=== PATIENT | female | born 1955 | race Caucasian/White ===

== ENCOUNTER → 2017-12-06 | Outpatient (CLI) | payer BC ==
--- NOTE | 2017-12-06 10:20 | CTL ---
EXAMINATION TYPE: CT Low Dose Lung DATE OF EXAM ORDERED: 12/06/2017 HISTORY: . Lung cancer screening CT DLP: 103.[address] CTDI: 3.1 mGy Automated exposure control for dose reduction was used. SCREENING VISIT: Initial COMPARISON: None TECHNIQUE: Low dose computed tomography scan was performed through the chest at 1 mm thick sections a nd reconstructed images in the coronal plane at [address] DIAGNOSTIC QUALITY: Satisfactory FINDINGS: LUNG NODULES: None. There is a 0.6 cm nodule within the periphery of the right posterior lateral lung base. Series 4 imag e 219. There is a 0.3 cm nodule within the periphery of the posterior lateral right lung base. Series 4 imag e 195. There is a 0.4 cm peripheral nodule posterior lateral left lung base. Series 4 image 189. There is a 0.5 cm peripheral nodule posterior right lower lung field. Series 4 image 188. LUNGS: COPD: Severity: None Fibrosis: Severity: None Lymph nodes: None Other findings: Ascending thoracic aorta measures 3.0 cm the main pulmonary artery. Main pulmonary ar lex measures 2.2 cm at the bifurcation. RIGHT PLEURAL SPACE: Effusion: None Calcification: None Thickening: None Pneumothorax: None LEFT PLEURAL SPACE: Effusion: None Calcification: None Thickening: None Pneumothorax: None HEART: Heart Size: Normal Coronary calcification: Minimal Pericardial effusion: None OTHER FINDINGS: Upper abdomen: Normal Bony thorax: Mild scoliosis. Supraclavicular region: Normal Other: None IMPRESSION: 1. Scattered small peripheral nodules FOLLOW UP CT CHEST RECOMMENDATION: Yes, follow-up low-dose CT chest [address] LUNG RAD: Lung rad 3
== END | disposition home or self-care (01) ==
LOC: RADCTMAIN 07:08
PROVIDERS: ATTEND Family Medicine
DX: Z12.2 Encounter for screening for malignant neoplasm of respiratory organs (principal); R91.8 Other nonspecific abnormal finding of lung field; Z87.891 Personal history of nicotine dependence

== ENCOUNTER → 2018-06-18 | Outpatient (CLI) | payer BC ==
--- NOTE | 2018-06-18 21:32 | CTL ---
EXAMINATION TYPE: CT Low Dose Lung DATE OF EXAM ORDERED: 06/18/2018 HISTORY: Long-term tobacco use. Lung cancer screening CT DLP: [address] CTDI: 2.14 mGy Automated exposure control for dose reduction was used. SCREENING VISIT: Second study COMPARISON: Prior CT Low Dose Lung screening December 06, 2017 TECHNIQUE: Low dose computed tomography scan was performed through the chest at 1 mm thick sections a nd reconstructed images in the coronal plane at [address] DIAGNOSTIC QUALITY: Satisfactory FINDINGS: LUNG NODULES: Present, detailed below: A 4 mm nodule anterior right lower lobe axial image 195 stable in retrospect. A 5 mm nodule anterior right lower lobe axial image 196 stable. A 3 mm nodule lateral right lower lobe axial image 203 stable. A 4 to 5 mm subpleural nodule right lower lobe axial image 227 stable or slightly less prominent. A 3 to 4 mm subpleural nodule left lower lobe axial image 204 stable. LUNGS: COPD: Severity: None Fibrosis: Severity: None Lymph nodes: None Other findings: None BILATERAL PLEURAL SPACE: Effusion: None Calcification: None Thickening: None Pneumothorax: None HEART: Heart Size: Normal Coronary calcification: None Pericardial effusion: None OTHER FINDINGS: Upper abdomen: None Bony thorax: None Supraclavicular region: None Other: None IMPRESSION: Stable scattered small nodules measuring up to 5 mm in size. No new greater than 4 mm nod ules evident. FOLLOW UP CT CHEST RECOMMENDATION: Annual low-dose lung screening CT CT LUNG RAD: Lung-Rad 2 Benign Appearance or Behavior
== END | disposition home or self-care (01) ==
LOC: RADCTMAIN 17:20
PROVIDERS: ATTEND Family Medicine
DX: Z12.2 Encounter for screening for malignant neoplasm of respiratory organs (principal); R91.8 Other nonspecific abnormal finding of lung field; Z87.891 Personal history of nicotine dependence

== ENCOUNTER → 2018-09-09 | Outpatient (CLI) | payer BC ==
--- NOTE | 2018-09-09 08:52 | BD ---
EXAMINATION TYPE: Axial Bone Density DATE OF EXAM: 09/09/2018 COMPARISON: NONE CLINICAL HISTORY: N 95.1 Height: 66.25 inches Weight: 185 FRAX RISK QUESTIONS: Alcohol (3 or more units per day): no Family History (Parent hip fracture): yes Glucocorticoids (More than 3mos): no (Ex: prednisone, prednisolone, methylprednisolone, dexamethasone, and hydrocortisone). History of Fracture in Adulthood: no Secondary Osteoporosis: 1. Type 1 Diabetes: no 2. Hyperthyroidism: no 3. Menopause before 45: no 4. Malnutrition: no 5. Chronic liver disease: no Rheumatoid Arthritis: no Current Tobacco Use: no RISK FACTORS HISTORY OF: Family History of Osteoporosis: not to patient's knowledge Active: yes Diet low in dairy products/other sources of calcium: no Postmenopausal woman: yes Take estrogen and/or progesterone medications: no Lost more than 2 inches in height since high school: no Frequent falls: no Poor Health: no Hyperparathyroidism: no Adrenal Insufficiency: no MEDICATIONS: Prednisone or other steroids: no Thyroid Medications: no Osteoporosis Medications: no Additional Medications: calcium Vitamin D Additional History: EXAM MEASUREMENTS: Bone mineral densitometry was performed using the [id number] System. Bone mineral density as measured about the Lumbar spine is: ----- L1-L4(G/cm2): 1.150 T Score Values are as follows: ----- L2: -0.3 ----- L3: 0.3 ----- L4: -0.6 ----- L1-L4: -0.2 Bone mineral density BASELINE Bone mineral density about the R hip (g/cm2): 0.945 Bone mineral density about the L hip (g/cm2): 0.950 T Score values are as follows: -----R Neck: -0.7 -----L Neck: -0.6 -----R Total: -0.3 -----L Total: 0.3 Bone mineral density BASELINE IMPRESSION: Normal (Values between +1 and -1 indicate normal bone mass). Consider repeating this study in 5 year s or sooner if there is some new clinical indication. NOTE: T-SCORE=SD OF THE YOUNG ADULT MEAN.
--- NOTE | 2018-09-10 13:40 | MM ---
Reason for exam: screening (asymptomatic). Last mammogram was performed 1 year and 9 months ago. History: Patient is postmenopausal and had first child at age 32. Physical Findings: A clinical breast exam by your physician is recommended on an annual basis and results should be correlated with mammographic findings. MG 3D Screening Mammo W/Cad Bilateral CC and MLO view(s) were taken. Prior study comparison: December 19, 2016, mammogram, performed at [facility]. April 01, 2015, mammogram, performed at [facility]. February 26, 2013, mammogram, performed at [facility]. July 01, 2010, mammogram, performed at [facility]. January 08, 2009, mammogram, performed at [facility]. January 07, 2009, mammogram, performed at [facility]. There are scattered fibroglandular densities. No significant changes when compared with prior studies. ASSESSMENT: Benign, BI-RAD 2 RECOMMENDATION: Routine screening mammogram of both breasts in 1 year.
== END | disposition home or self-care (01) ==
LOC: RADMAMWWP 06:58
PROVIDERS: ATTEND Obstetrics & Gynecology
DX: Z12.31 Encounter for screening mammogram for malignant neoplasm of breast (principal); N95.1 Menopausal and female climacteric states
CPT/HCPCS: 77063; 77067; 77080

== ENCOUNTER → 2019-08-28 | Outpatient (CLI) | payer BC | END | disposition home or self-care (01) | LOC: LABWHC1 09:21 | PROVIDERS: ATTEND Family Medicine | DX: Z03.818 Encounter for observation for suspected exposure to other biological agents ruled out (principal); R52 Pain, unspecified; J02.9 Acute pharyngitis, unspecified | CPT/HCPCS: U0003; C9803 ==

== ENCOUNTER → 2021-04-20 | Outpatient (CLI) | payer BC ==
--- NOTE | 2021-04-21 11:19 | MM ---
Reason for exam: screening (asymptomatic). Last mammogram was performed 2 years and 7 months ago. History: Patient is postmenopausal and had first child at age 32. Physical Findings: A clinical breast exam by your physician is recommended on an annual basis and results should be correlated with mammographic findings. MG 3D Screening Mammo W/Cad Bilateral CC and MLO view(s) were taken. Prior study comparison: September 09, 2018, bilateral MG 3d screening mammo w/cad. December 19, 2016, mammogram, performed at [facility]. The breast tissue is heterogeneously dense. This may lower the sensitivity of mammography. There is no discrete abnormality. No significant changes when compared with prior studies. ASSESSMENT: Negative, BI-RAD 1 RECOMMENDATION: Routine screening mammogram of both breasts in 1 year.
== END | disposition home or self-care (01) ==
LOC: RADMAMWWP 07:14
PROVIDERS: ATTEND Obstetrics & Gynecology
DX: Z12.31 Encounter for screening mammogram for malignant neoplasm of breast (principal); Z80.3 Family history of malignant neoplasm of breast
CPT/HCPCS: 77063; 77067

== ENCOUNTER 2022-05-01 07:30 | Emergency (ER) | payer MEDICARE, BC ==
[2022-05-01 07:34] VITALS: BP 138/65; PULSE 85; RESP 18; TEMP 98.1
[2022-05-01] MEDS ORDERED: IBUPROFEN 600 MG TAB PO STA (07:48)
--- NOTE | 2022-05-01 07:52 | ED ---
URI HPI - General Chief Complaint: Upper Respiratory Infection Stated Complaint: throat pain, body aches Time Seen by Provider: 05/01/22 07:35 Source: patient, RN notes reviewed, old records reviewed Mode of arrival: ambulatory Limitations: no limitations - History of Present Illness Initial Comments: This is a nontoxic-appearing 66-year-old female presents to the emergency room ambulatory with complaints of 4 days of sore throat and body aches. States it feels like she has the flu. Denies any fevers. No nausea vomiting or diarrhea. No chest pain. She does have an occasional cough. Symptoms improve with ibuprofen. Was a daily smoker but states stopped a couple days ago. Denies any other medical history. No medications on a daily basis. MD Complaint: sore throat, other (body aches) -: days(s) (4) Severity scale (1-10): 8 Quality: aching Consistency: constant Improves With: NSAID - Related Data Home Medications Medication Instructions Recorded Confirmed No Known Home Medications 05/01/22 05/01/22 Allergies Allergy/AdvReac Type Severity Reaction Status Date / Time No Known Allergies Allergy Verified 05/01/22 07:43 Review of Systems ROS Statement: Those systems with pertinent positive or pertinent negative responses have been documented in the HPI. ROS Other: All systems not noted in ROS Statement are negative. Past Medical History Past Medical History: No Reported History History of Any Multi-Drug Resistant Organisms: None Reported Past Surgical History: Section Past Psychological History: No Psychological Hx Reported Smoking Status: Former smoker Past Alcohol Use History: Occasional Past Drug Use History: None Reported General Exam Limitations: no limitations General appearance: alert, in no apparent distress Head exam: Present: atraumatic Eye exam: Present: normal appearance. Absent: scleral icterus, conjunctival injection, periorbital swelling, periorbital tenderness ENT exam: Present: mucous membranes moist Expanded Mouth exam: Present: tongue normal, tongue elevation. Absent: drooling, trismus, muffled voice Throat exam: normal inspection. negative: tonsillar erythema, tonsillomegaly, tonsillar exudate, R peritonsillar mass, L peritonsillar mass Neck exam: Present: full ROM. Absent: tenderness, meningismus, lymphadenopathy, thyromegaly Respiratory exam: Present: normal lung sounds bilaterally. Absent: respiratory distress, accessory muscle use Cardiovascular Exam: Present: regular rate Extremities exam: Present: full ROM, normal capillary refill Neurological exam: Present: alert, oriented X3, CN II-XII intact Psychiatric exam: Present: normal affect, normal mood Skin exam: Present: warm, dry, normal color. Absent: cyanosis, diaphoretic, petechiae, pallor Course Vital Signs 05/01/22 05/01/22 07:32 08:02 Temperature 98.1 F Pulse Rate 85 Respiratory 18 18 Rate Blood Pressure 138/65 O2 Sat by Pulse 96 Oximetry Medical Decision Making - Medical Decision Making Chest x-ray interpreted by me shows no evidence of focal consolidation. Cardiac silhouette within normal size. Trachea is midline. Radiologist interpretation no evidence of acute pulmonary disease. Oxygen saturation is 96% on room air, lungs sounds are clear to auscultation. Patient is afebrile. She denies any chest pain or difficulty breathing. Strep test performed due to patient's complaints of sore throat and negative. Influenza, coronavirus (swab negative. Patient states she continues to have a sore throat for she was given a shot of Decadron. She is instructed take Tylenol Motrin as needed follow-up with her primary care doctor. Increase her fluid intake. She is agreeable to this plan of care. Case discussed with Dr. Sam. Was pt. sent in by a medical professional or institution ([facility] Mcintyre, [employer], urgent care, hospital, or penitentiary...) When possible be specific @ -No Did you speak to anyone other than the patient for history (EMS, parent, family, police, friend...)? What history was obtained from this source @ -No Did you review nursing and triage notes (agree or disagree)? Why? @ -I reviewed and agree with nursing and triage notes Were old charts reviewed (outside hosp., previous admission, EMS record, old EKG, old radiological studies, urgent care reports/EKG's, penitentiary records)? Report findings @ -No old charts were reviewed Differential Diagnosis (chest pain, altered mental status, abdominal pain women, abdominal pain men, vaginal bleeding, weakness, fever, dyspnea, syncope, headache, dizziness, GI bleed, back pain, seizure, CVA, palpatations, mental health, musculoskeletal)? @ -Viral URI, strep pharyngitis, coronavirus, retropharyngeal abscess, epiglottitis, pneumonia . This is not an all inclusive list EKG interpreted by me (3pts min.). @ -n/a X-rays interpreted by me (1pt min.). @ -yES as above CT interpreted by me (1pt min.). @ -None done U/S interpreted by me (1pt. min.). @ -None done What testing was considered but not performed or refused? (CT, X-rays, U/S, labs)? Why? @ -None What meds were considered but not given or refused? Why? @ -None Did you discuss the management of the patient with other professionals (professionals i.e. Dr., PA, [employer], lab, RT, psych nurse, social economist, preschool teacher assistant, teacher, chief informatics officer, heel caser)? Give summary @ -No Was smoking cessation discussed for >3mins.? @ -Yes Was critical care preformed (if so, how long)? @ -No Were there social determinants of health that impacted care today? How? (Homelessness, low income, unemployed, alcoholism, drug addiction, transportation, low edu. Level, literacy, decrease access to med. care, long term, rehab)? @ -No Was there de-escalation of care discussed even if they declined (Discuss DNR or withdrawal of care, Hospice)? DNR status @ -No What co-morbidities impacted this encounter? (DM, HTN, Smoking, COPD, CAD, Cancer, CVA, ARF, Chemo, Hep., AIDS, mental health diagnosis, sleep apnea, morbid obesity)? @ -None Was patient admitted / discharged? Hospital course, mention meds given and route, prescriptions, significant lab abnormalities, going to OR and other pertinent info. @ -Discharged Undiagnosed new problem with uncertain prognosis? @ -No Drug Therapy requiring intensive monitoring for toxicity (Heparin, Nitro, Insulin, Cardizem)? @ -No Were any procedures done? @ -No Diagnosis/symptom? @ -URI, pharyngitis Acute, or Chronic, or Acute on Chronic? @ -Acute Uncomplicated (without systemic symptoms) or Complicated (systemic symptoms)? @ -Uncomplicated Side effects of treatment? @ -No Exacerbation, Progression, or Severe Exacerbation? @ -No Poses a threat to life or bodily function? How? (Chest pain, [place], [place], pneumonia, PE, COPD, DKA, ARF, appy, cholecystitis, CVA, Diverticulitis, Homicidal, Suicidal, threat to staff... and all critical care pts) @ -No - Lab Data Lab Results 05/01/22 05/01/22 Range/Units 07:59 07:59 Influenza Type A (PCR) Not Detected (Not Detectd) Influenza Type B (PCR) Not Detected (Not Detectd) RSV (PCR) Not Detected (Not Detectd) SARS-CoV-2 (PCR) Not Detected (Not Detectd) Group A Strep (PCR) NOT DETECTED (Not Detectd) Disposition Clinical Impression: URI (upper respiratory infection), Pharyngitis Disposition: HOME SELF-CARE Condition: Good Instructions (If sedation given, give patient instructions): Upper Respiratory Infection (ED) Additional Instructions: Increase your fluid intake. Tylenol and or Motrin as needed for pain or discomfort. Always try to quit smoking. Follow-up with your primary care doctor this week. Return to the emergency room with any new or concerning symptoms. Is patient prescribed a controlled substance at d/c from ED?: No Referrals: Miles Todd MD [Primary Care Provider] - 1-2 days Time of Disposition: 08:56
--- NOTE | 2022-05-01 08:23 | XR ---
EXAMINATION TYPE: XR chest 2V DATE OF EXAM: 05/01/2022 COMPARISON: NONE HISTORY: Shortness of breath TECHNIQUE: Frontal and lateral views of the chest are obtained. FINDINGS: Scattered senescent parenchymal changes noted. Hyperinflation compatible with COPD. No evidence for infiltrate. No evidence for atelectasis. Heart size is stable. Mediastinal structures are stable and grossly unremarkable. No evidence for hilar prominence. Degenerative changes dorsal spine. IMPRESSION: 1. No evidence for acute pulmonary disease.
[2022-05-01] MEDS ORDERED: DEXAMETHASONE SOD PHOSPHATE 10 MG/ML 1 ML VIAL IM STA (09:04)
== END 2022-05-01 09:17 | disposition home or self-care (01) ==
LOC: EC 07:30
DX: J06.9 Acute upper respiratory infection, unspecified (principal); Z87.891 Personal history of nicotine dependence; Z20.822 Contact with and (suspected) exposure to COVID-19
CPT/HCPCS: 87651; 87636; 71046; 99284; 96372; J1100

== ENCOUNTER → 2022-06-16 | Outpatient (CLI) | payer BC, MEDICARE ==
[2022-06-16 11:53] LABS: African American GFR (CKD) >90 (>60 ml/min/1.73 sqM); Blood Urea Nitrogen 26 mg/dL (7-17); Non-African American GFR(CKD) >90 (>60 ml/min/1.73 sqM)
--- NOTE | 2022-06-16 12:56 | CT ---
EXAMINATION TYPE: CT chest wo con DATE OF EXAM: 06/16/2022 COMPARISON: 06/18/2018 HISTORY: prior exam with abn lung field CT DLP: 293.2 mGycm. Automated Exposure Control for Dose Reduction was Utilized. TECHNIQUE: CT scan of the thorax is performed without IV contrast. FINDINGS: LUNGS: The lungs are grossly clear, there is no concerning parenchymal consolidation identified. Th ere is no pleural effusion or pneumothorax seen. The tracheobronchial tree is patent. A multiple 5 m m less pulmonary nodules are stable from prior exam MEDIASTINUM: Lack of IV contrast is noted to limit evaluation for mediastinal and especially hilar ad enopathy. There are no definitive greater than 1 cm hilar or mediastinal lymph nodes. No cardiomega ly or pericardial effusion is seen. OTHER: Hypertrophic and degenerative change of the spine. There is a small splenic artery 1.1 cm. IMPRESSION: 1. Stable multiple 5 mm or less bilateral pulmonary nodules which have a benign appearance. 2. Small 1.1 cm splenic artery aneurysm
== END | disposition home or self-care (01) ==
LOC: RADCTMAIN 10:51
PROVIDERS: ATTEND Family Medicine
DX: R91.8 Other nonspecific abnormal finding of lung field (principal); I72.8 Aneurysm of other specified arteries
CPT/HCPCS: 36415; 71250; 82565; 84520

== ENCOUNTER → 2023-03-23 | Outpatient (CLI) | payer BC, MEDICARE ==
--- NOTE | 2023-03-23 10:04 | USB ---
Reason for Exam: Clinical finding. Patient History: Menarche at age 13. First Full-Term at age 32. Late child-bearing (after 30). Postmenopausal. Risk Values: Josefina 5 year model risk: 2.3%. NCI Lifetime model risk: 8.2%. Technique: Method: Targeted. Prior Study Comparison: 12/19/2016 Screening Mammogram, [facility]. 09/09/2018 Bilateral Screening Mammogram, [facility]. 04/20/2021 Bilateral Screening Mammogram, [facility]. Findings: The upper outer quadrant of the right breast, the lower outer quadrant of the right breast, the axilla of the right breast and the retroareolar of the right breast were scanned. Targeted ultrasound lateral half right breast 6:00 to 12:00 including scanning of the subareolar region and axilla. Particular attention to the patient's 9:00 site of pain. No solid or cystic lesion or axillary adenopathy.. Overall Assessment: Benign, BI-RAD 2 Management: Screening Mammogram of both breasts in 1 year. Further clinical management patient's lateral right breast pain. A clinical breast exam by your physician is recommended on an annual basis and results should be correlated with mammographic findings. This exam should not preclude additional follow-up of suspicious palpable abnormalities. Results were given to the patient verbally at the time of exam. Electronically signed and approved by: Rod Marina M.D. Radiologist
--- NOTE | 2023-03-23 10:28 | MM ---
Reason for Exam: Clinical finding. Last mammogram was performed 1 year(s) and 11 month(s) ago. Patient History: Menarche at age 13. First Full-Term at age 32. Late child-bearing (after 30). Postmenopausal. Risk Values: Josefina 5 year model risk: 2.3%. NCI Lifetime model risk: 8.2%. Tissue Density: There are scattered fibroglandular densities. Findings: Analyzed By CAD. No significant change from prior exams. Unchanged asymmetric density subareolar right MLO view. Overall Assessment: Incomplete: need additional imaging evaluation, BI-RAD 0 Management: Diagnostic Breast Ultrasound of the right breast. for lateral breast pain. Electronically signed and approved by: Rod Marina M.D. Radiologist
== END | disposition home or self-care (01) ==
LOC: RADMAMWWP 08:56
PROVIDERS: ATTEND Obstetrics & Gynecology
DX: N64.4 Mastodynia (principal); Z78.0 Asymptomatic menopausal state
CPT/HCPCS: 77066; 76642; G0279; 77062

== ENCOUNTER → 2023-09-24 | Outpatient (CLI) | payer MEDICARE | END | disposition home or self-care (01) | LOC: LABWHC1 09:42 | CPT/HCPCS: 36415; 83036; 87070 ==

== ENCOUNTER 2023-10-05 05:37 | Day surgery (SDC) | payer MEDICARE ==
[2023-10-05] MEDS ORDERED: TRANEXAMIC 1,000 MG/100ML-NACL 1,000 MG in SALINE 1 100ML.BAG IVPB PRN (06:00)
[2023-10-05] MEDS ORDERED: TRANEXAMIC 1,000 MG/100ML-NACL 1,000 MG in SALINE 1 100ML.BAG IV PRN (06:00)
[2023-10-05] MEDS: DOCUSATE 100 MG CAP PO PRN (06:54)
[2023-10-05] MEDS: ACETAMINOPHEN TAB 500 MG TAB PO PRN (06:54)
[2023-10-05] MEDS: oxyCODONE ER 10 MG TAB.ER.12H PO PRN (06:54)
[2023-10-05] MEDS ORDERED: MIDAZOLAM 2 MG/2 ML VIAL IV PRN (07:00)
[2023-10-05] MEDS: DEXAMETHASONE SOD PHOSPHATE 10 MG/ML 1 ML VIAL IV PRN (07:12)
[2023-10-05] MEDS: KETOROLAC 15 MG/ML 1 ML VIAL IVP PRN (07:12)
[2023-10-05] MEDS: ONDANSETRON 4 MG/2 ML VIAL IVP PRN (07:12)
[2023-10-05] MEDS: FAMOTIDINE 20 MG/2 ML VIAL IVP PRN (07:12)
[2023-10-05] MEDS: LACTATED RINGERS 1,000 ML IV SCH (07:24)
[2023-10-05] MEDS: IV FLUID CONTINUATION 1,000 ML IV ONE (07:25)
[2023-10-05] MEDS ORDERED: PHENYLEPHRINE-0.9% NACL SYG 1,000 MCG/10 ML SYRINGE ONE (07:27)
[2023-10-05] MEDS ORDERED: SUCCINYLCHOLINE CHLORIDE 200 MG/10 ML VIAL IV ONE (07:27)
[2023-10-05] MEDS ORDERED: ROCURONIUM 10 MG/ML (5 ML VIAL) IV ONE (07:27)
[2023-10-05] MEDS ORDERED: TRANEXAMIC 1,000 MG/100ML-NACL PREMIX BAG ONE (07:27)
[2023-10-05] MEDS ORDERED: HYDROmorphone (PF) 1 MG/ML ONE (07:27)
[2023-10-05] MEDS ORDERED: ROPIVACAINE 5 MG/ML 30 ML VIAL ONE (07:27)
[2023-10-05] MEDS ORDERED: PROPOFOL 10 MG/ML 20 ML VIAL IV ONE (07:27)
[2023-10-05] MEDS ORDERED: LIDOCAINE 1% INJ 10MG/ML (20 ML MDV) ONE (07:27)
[2023-10-05] MEDS ORDERED: GLYCOPYRROLATE 0.2 MG/ML 2 ML VIAL ONE (07:27)
[2023-10-05] MEDS ORDERED: NEOSTIGMINE 1 MG/ML 10 ML VIAL ONE (07:27)
[2023-10-05] MEDS ORDERED: fentaNYL (PF) 50 MCG/ML 2 ML AMP ONE (07:27)
[2023-10-05] MEDS: ROPIVACAINE/EPI/CLONIDINE/KET 50 ML SYRINGE MISCELLANE PRN (08:16)
[2023-10-05] MEDS: LACTATED RINGERS 1,000 ML IV ONE (09:32)
[2023-10-05] MEDS ORDERED: NALOXONE 0.4 MG/ML 1 ML VIAL IV PRN (09:49)
[2023-10-05] MEDS ORDERED: ONDANSETRON 4 MG/2 ML VIAL IVP PRN (09:49)
[2023-10-05] MEDS ORDERED: HYDROcodone/APAP 5-325MG 1 EACH TAB PO PRN (09:49)
--- NOTE | 2023-10-05 09:49 | P.OP ---
Date of Procedure: 10/05/23 Preoperative Diagnosis: Severe right hip arthritis Postoperative Diagnosis: Same Procedure(s) Performed: Right direct anterior total hip arthroplasty Implants: 1. [place] Trident II Acetabular Cup, Size #50 2. Yogesh Insignia Size #6 Femoral Stem, Standard Offset 3. Biolox delta femoral head, 36 mm, +0 neck Anesthesia: mechelle HDEZ Surgeon: Jluis Dobson [employer] Operator #1: Marco Antonio Kirby Estimated Blood Loss (ml): 200 IV fluids (ml): 800 Pathology: none sent Condition: stable Disposition: PACU Indications for Procedure: I had a long discussion with the patient in the office on the potential risks and complications of an elective total hip replacement through a direct anterior approach. Risks discussed include, but are certainly not limited to, risks from anesthesia, superficial infection requiring local wound care or antibiotics, deep jesu-prosthetic joint infection and the treatment required to eradicate infection, intraoperative fracture, postoperative periprosthetic fracture, damage to local blood vessels or nerves particularly the lateral femoral cutaneous nerve, delayed wound healing requiring local wound care or possibly surgical debridement, hip dislocation, leg length discrepancy, soft tissue irritation around the total hip implant such as iliopsoas tendinitis or trochanteric bursitis, wear and osteolysis from the implants, squeaking or audible noises, groin pain, thigh pain, heterotopic ossification, stiffness, aseptic loosening of the implants, dissatisfaction with surgical outcome, need for revision surgery, DVT, PE, swelling of the operative extremity, acute coronary event, stroke, failure to thrive, and possibly loss of life or limb. The patient understands that while these are the most common complications after an elective hip replacement there are certainly other less common complications possible. They were given ample time to ask questions regarding the potential complications of a hip replacement. Following our discussion the patient prov ided their verbal and written consent to go forward with an elective total hip replacement. Operative Findings: Severe right hip arthritis Description of Procedure: The patient was identified in the preoperative holding area and the correct hip was marked with my initials. I reviewed the procedure and consent with the patient. All of their questions were answered. The patient was then brought back into the operating room by anesthesia. While on the [facility] anesthesia was administered by the anesthesia team. Preoperative antibiotics and tranexamic acid were also given. After the patient was under anesthesia I examined their ankles to determine their preoperative leg length discrepancy. The skin over the anterior aspect of the hip was shaved to remove hair over the site of planned incision. Both feet and ankles were padded with webril and boots for the [place] were applied. The patient was then carefully transferred onto the [place] table. A perineal post was immediately placed. The arms were placed on arm holders and were well-padded. Both boots were secured to the spars on the [place] table. The patient was positioned so that the pelvis was centered over the post. Nonsterile drapes were applied. A timeout was performed identifying the correct patient, operative extremity, and procedure. At this point fluoroscopy was brought in to take preoperative images of the pelvis and operative hip. Using the standing AP pelvis from the office as a template, a comparable image was obtained with fluoroscopy. A metallic bar was used to create a bi-ischial line for use as a reference to leg length adjustments during the procedure. Global offset was also measured on both the operative and nonoperative leg. Fluoroscopy was then brought out and a pre-scrub using a chlorhexidine scrub brush was performed. The operative limb was then prepped and draped in the standard sterile fashion. An anterior longitudinal incision was made lateral and distal to the ASIS. The skin and subcutaneous tissues were incised sharply. The underlying tensor fascia was identified and incised in its midportion. The fascia was dissected free from the underlying muscle and the muscle belly was retracted. A blunt tipped cobra retractor was placed over the superior neck under the muscle fibers of the gluteus minimus. The deep enveloping fascia of the tensor was incised. The anterior leash of vessels were then identified and cauterized. The fascia between the rectus and the capsule was then incised and the pre-capsular fat was excised. A second Cobra was placed inferior to the neck. The interval between the rectus and iliocapsularis and the hip capsule was developed and a retractor was placed carefully over the anterior rim of the acetabulum. A T-shaped anterior capsulotomy was performed. The superior capsular leaflet was left in place in the inferior capsular flap was excised. The Cobra retractors were placed intracapsularly. We then made a femoral neck osteotomy according to preoperative and intraoperative templating and confirmed the level of the osteotomy using fluoroscopic imaging. The femoral head was removed, passed off to the back table, and sized. The superior capsular flap was excised. Retractors were placed circumferentially exposing the acetabulum. We then circumferentially debrided the acetabulum free of labrum and osteophytes. The pulvinar was removed to fully visualize the cotyloid fossa. We then sequentially reamed to achieve peripheral fit and excellent bleeding subchondral bone. The socket was thoroughly irrigated. The acetabular component was impacted into the appropriate position using fluoroscopy to guide version, inclination, and depth of insertion taking care to have a comparable image of the AP pelvis to the standing image taken in the office. An excellent press-fit was achieved and final position was confirmed using fluoroscopy. The press fit was augmented with bony cancellus dome screws. The liner was then impacted into the socket. Attention was then turned to the femur. The remnant dorsal lateral capsule was excised. The short external rotators were visible and protected. A bone hook was used to confirm appropriate translation of the trochanter away from the acetabulum. The leg was then extended and adducted and the bone hook was used to elevate the femur for broaching. A box osteotome and blunt tipped canal sound was then utilized to gain access to the femoral canal. We then sequentially broached the femur in appropriate anteversion until excellent torsional stability was achieved. The neck cut was brought flush to the trial broach with a calcar planar. A trial neck and head were then placed onto the broach and the hip was atraumatically reduced under direct visualization. External rotation to 90 was performed to assess stability. Fluoroscopy was brought in. An AP and lateral fluoroscopic image of the proximal femur was obtained to assess position and fill of the trial broach. An AP of the pelvis was then obtained and matched to the preoperative image taken. A bi-ischial bar was then placed and measurements were taken to assess changes in length and offset. The hip was then carefully dislocated, the proximal femur was exposed, and the trial implants were removed. The wound and proximal femur was thoroughly irrigated using sterile saline and pulsatile lavage. The final femoral implant was dispensed and gently tapped into place generating an excellent press-fit. The trunnion was cleansed and the final head was tapped into place to engage the Parrish taper. The acetabulum was irrigated and visualized to be free of debris. The hip was carefully reduced. Stability was checked clinically with external rotation to 90 and there was no evidence of instability. Final fluoroscopic images were taken. The wound was then thoroughly irrigated and soaked with a dilute Betadine rinse for 3 minutes. 3 L of sterile saline was irrigated through the wound using pulsatile lavage. Local anesthetic cocktail was injected into the soft tissues around the surgical field. The wound was then closed in layers. A sterile dressing was placed over the surgical incision. The drapes were taken down and the patient was carefully transferred off of the [place] table. Following removal of the boots the leg lengths felt acceptable. The patient was then taken to recovery room having tolerated the procedure well. Marco Antonio Kirby PA-C was required as a skilled phlebotomist medical lab assistant due to the complexity of surgery for patient positioning, draping, exposure, retraction, closure of wound and application of dressing. PLAN: The patient can weight-bear as tolerated on the operative extremity. DVT prophylaxis with aspirin 81 mg twice a day based on preoperative risk stratification. Physical therapy for gait training. Leave surgical dressing in place. Internal medicine for perioperative medical management.
[2023-10-05] MEDS: HYDROmorphone 0.5 MG/0.5 ML SYRINGE IVP PRN (10:01)
--- NOTE | 2023-10-05 10:55 | P.ANPRN ---
Procedure Note - Anesthesia - Nerve Block Performed Right [place] Single Time Out Performed: Yes ([id number]) Date of Procedure: 10/05/23 Procedure Start Time: :06 Procedure Stop Time: 07:10 Location of Patient: PreOp Indication: Acute Post-Operative Pain, Requested by Surgeon Specifically requested for management of pain by DrRachelle: Jluis Dobson Sedation Type: Sedate with meaningful contact maintained Preparation: Sterile Prep Position: Supine Catheter: None Needle Types: Pajunk Needle Gauge: 21 Ultrasound used to visualize needle placement: Yes Ultrasound used to observe medication spread: Yes Injectate: 0.5% Ropivacaine (see comment for volume) (30cc) Blood Aspirated: No Pain Paresthesia on Injection Noted: No Resistance on Injection: Normal Image Stored and Saved: Yes Events: Uneventful and Well Tolerated
--- NOTE | 2023-10-05 11:25 | FL ---
EXAMINATION TYPE: FL guidance operating room, XR Hip Limited RT DATE OF EXAM: 10/05/2023 Comparison: None Clinical History: 68-year-old female RT ANTERIOR HIP Findings: RIGHT TOTAL HIP ANTERIOR FL TIME- 34 SECONDS DAP- 2.4302 Gycm2 9 images submitted.
[2023-10-05] MEDS: SODIUM CHLORIDE 0.9% 1,000 ML IV SCH (16:02)
[2023-10-05] MEDS: HYDROcodone/APAP 10-325MG 1 EACH TAB PO PRN (16:22)
--- NOTE | 2023-10-05 18:52 | P.CONS ---
History of Present Illness - Reason for Consult Consult date: 10/05/23 Medical management - Chief Complaint Severe right hip osteoarthritis - History of Present Illness 68-year-old female patient with history of hypertension, hyperlipidemia, gastroesophageal reflux disease, admitted to the hospital with severe right hip osteoarthritis that has failed conventional therapy. Patient is admitted for elective right total hip arthroplasty; patient is POD #0 --Reports adequate pain control; apprehensive of getting out of bed to go to the bathroom Patient is currently taking rosuvastatin 20 mg daily; currently not on any antihypertensive therapy Review of Systems REVIEW OF SYSTEMS: CONSTITUTIONAL: No fever, no malaise, no fatigue. HEENT: No recent visual problems or hearing problems. Denied any sore throat. CARDIOVASCULAR: No chest pain, orthopnea, PND, no palpitations, no syncope. PULMONARY: No shortness of breath, no cough, no hemoptysis. GASTROINTESTINAL: No diarrhea, no nausea, no vomiting, no abdominal pain. NEUROLOGICAL: No headaches, no weakness, no numbness. HEMATOLOGICAL: Denies any bleeding or petechiae. GENITOURINARY: Denies any burning micturition, frequency, or urgency. MUSCULOSKELETAL/RHEUMATOLOGICAL: Denies any joint pain, swelling, or any muscle pain. ENDOCRINE: Denies any polyuria or polydipsia. The rest of the 14-point review of systems is negative. Past Medical History Past Medical History: Hyperlipidemia, Osteoarthritis (OA) History of Any Multi-Drug Resistant Organisms: None Reported Past Surgical History: Section Additional Past Surgical History / Comment(s): C/S x3, colonoscopies Past Anesthesia/Blood Transfusion Reactions: No Reported Reaction Smoking Status: Former smoker - Past Family History Father Family Medical History: Cancer Additional Family Medical History / Comment(s): lung Medications and Allergies Home Medications Medication Instructions Recorded Confirmed Type Ibuprofen [Motrin Ib] 200 - 400 mg PO Q6H PRN 10/02/23 10/02/23 History Multivit-Min/Folic Acid/Biotin 133.3 mcg PO DAILY 10/02/23 10/02/23 History [Hair, Skin and Nails Softgel] Multivitamins, Thera [Multivitamin 1 tab PO DAILY 10/02/23 10/02/23 History (formulary)] Rosuvastatin Calcium 20 mg PO DAILY 10/02/23 10/02/23 History Aspirin 81 mg PO BID #60 tab 10/05/23 Rx Diclofenac Sodium [Voltaren] 75 mg PO BID #60 tab 10/05/23 Rx Docusate [Colace] 100 mg PO BID #60 capsule 10/05/23 Rx HYDROcodone/APAP 5-325MG [[place] 1 - 2 tab PO Q6HR PRN #48 tab 10/05/23 Rx 5-325] Omeprazole [PriLOSEC] 40 mg PO DAILY #30 cap 10/05/23 Rx Allergies Allergy/AdvReac Type Severity Reaction Status Date / Time No Known Allergies Allergy Verified 10/05/23 06:25 Physical Exam Vitals: Vital Signs Temp Pulse Resp BP Pulse Ox 10/05/23 11:00 66 16 104/58 97 10/05/23 10:30 53 L 16 100/55 97 10/05/23 10:15 52 L 16 104/58 97 10/05/23 10:00 16 122/62 94 L 10/05/23 09:45 76 14 97/52 98 10/05/23 09:30 97.1 F L 72 14 141/68 96 10/05/23 07:19 97.5 F L 63 16 129/63 97 10/05/23 07:10 58 L 16 103/58 97 Intake and Output 10/04/23 10/05/23 10/05/23 22:59 06:59 14:59 Intake Total 1150 Output Total 200 Balance 950 Intake: IV 1150 Output: Estimated Blood Loss 200 Other: Weight 82.2 kg - Constitutional General appearance: Present: average body habitus, cooperative, no acute distress - EENT Eyes: Present: anicteric sclerae, EOMI, PERRLA, normal appearance ENT: Present: hearing grossly normal, normal oropharynx Ears: bilateral: normal - Neck Neck: Present: normal ROM. Absent: lymphadenopathy, rigidity, thyromegaly Carotids: negative: bruit present Thyroid: bilateral: normal size, negative: enlarged, nodule - Respiratory Respiratory: bilateral: CTA, negative: rales, rhonchi, wheezing - Cardiovascular Rhythm: regular Heart sounds: normal: S1, S2 Abnormal Heart Sounds: Absent: systolic murmur, diastolic murmur - Gastrointestinal General gastrointestinal: Present: normal bowel sounds, soft. Absent: distended, organomegaly, tenderness - Genitourinary Genitourinary Comment(s): deferred - Integumentary Integumentary: Present: normal turgor. Absent: jaundiced, rash, ulcer - Neurologic Neurologic: Present: CNII-XII intact. Absent: focal deficits - Musculoskeletal Musculoskeletal: Present: gait normal, strength equal bilaterally - Psychiatric Psychiatric: Present: A&O x's 3, appropriate affect, intact judgment & insight Assessment and Plan Assessment: 1. Severe osteoarthritis right hip -Status post right total hip arthroplasty; POD #0 -- PT/OT to evaluate patient; recommending incentive spirometry every 1-2 hours while awake -- DVT prophylaxis per recommendation of orthopedic surgery -Patient remains on cefazolin 2 g IV every 8 hours -Pain control with IV Dilaudid and [place] 2. Hyperlipidemia; patient takes Crestor 20 mg daily 3. Gastroesophageal reflux disease; start Protonix 40 mg daily DVT prophylaxis; per discretion of orthopedic surgery Code status; full code
[2023-10-05] MEDS: SENNOSIDES-DOCUSATE SODIUM 1 EACH TAB PO SCH (20:43)
[2023-10-05] MEDS: BENZOCAINE/MENTHOL LOZENG 1 EACH LOZENGE MUCOUS MEM PRN (20:44)
[2023-10-05] MEDS: ASPIRIN 81 MG PO SCH (20:44)
[2023-10-06] MEDS: hydrOXYzine pamoate 25 MG CAP PO PRN (03:54)
[2023-10-06 08:20] LABS: African American GFR (CKD) >90 (>60 ml/min/1.73 sqM); Anion Gap 5 mmol/L; Blood Urea Nitrogen 25 mg/dL (7-17); Calcium 8.5 mg/dL (8.4-10.2); Carbon Dioxide 22 mmol/L (22-30); Chloride 108 mmol/L (98-107); Glucose 130 mg/dL (74-99); Non-African American GFR(CKD) 85 (>60 ml/min/1.73 sqM); Sodium 135 mmol/L (137-145)
--- NOTE | 2023-10-06 08:38 | P.DS ---
Providers Date of admission: 10/05/2023 Attending physician: Jluis Dobson Consults: 10/05/23 09:49 Consult Physician Routine Consulting Provider: Logan Roe Consult Reason/Comments: post op medical management Do you want consulting provider notified?: Yes Primary care physician: [facility] Course: The patient is a very pleasant relatively healthy 68-year-old female who was admitted yesterday and underwent an uncomplicated right hip replacement. Following surgery she was transferred to the orthopedic floor in stable condition. Internal medicine was consulted for medical management. I saw the patient on postoperative day #1 and she was doing well. Her dressing was intact with no drainage or strike through. There is minimal swelling in her thigh. Her femoral nerve function was intact. She was able to actively plantarflex and dorsiflex her ankle and her toes. She worked with physical therapy and did well. She was ultimately cleared for discharge home. Plan - Discharge Summary Discharge Rx Participant: No New Discharge Prescriptions: New Docusate [Colace] 100 mg PO BID #60 capsule Ondansetron [Zofran] 4 mg PO Q8HR PRN #20 tab PRN Reason: Nausea Aspirin 81 mg PO BID #60 tab Diclofenac Sodium [Voltaren] 75 mg PO BID #60 tab Omeprazole [PriLOSEC] 40 mg PO DAILY #30 cap HYDROcodone/APAP 5-325MG [[place] 5-325] 1 - 2 tab PO Q6HR PRN #48 tab PRN Reason: Pain No Action Rosuvastatin Calcium 20 mg PO DAILY Ibuprofen [Motrin Ib] 200 - 400 mg PO Q6H PRN PRN Reason: Pain Multivitamins, Thera [Multivitamin (formulary)] 1 tab PO DAILY Multivit-Min/Folic Acid/Biotin [Hair, Skin and Nails Softgel] 133.3 mcg PO DAILY Discharge Medication List Ibuprofen [Motrin Ib] 200 - 400 mg PO Q6H PRN 10/02/23 [History] Multivit-Min/Folic Acid/Biotin [Hair, Skin and Nails Softgel] 133.3 mcg PO DAILY 10/02/23 [History] Multivitamins, Thera [Multivitamin (formulary)] 1 tab PO DAILY 10/02/23 [History] Rosuvastatin Calcium 20 mg PO DAILY 10/02/23 [History] Aspirin 81 mg PO BID #60 tab 10/05/23 [Rx] Diclofenac Sodium [Voltaren] 75 mg PO BID #60 tab 10/05/23 [Rx] Docusate [Colace] 100 mg PO BID #60 capsule 10/05/23 [Rx] HYDROcodone/APAP 5-325MG [[place] 5-325] 1 - 2 tab PO Q6HR PRN #48 tab 10/05/23 [Rx] Omeprazole [PriLOSEC] 40 mg PO DAILY #30 cap 10/05/23 [Rx] Ondansetron [Zofran] 4 mg PO Q8HR PRN #20 tab 10/06/23 [Rx] Follow up Appointment(s)/Referral(s): Jluis Dobson MD [Medical Doctor] - 2 Weeks Activity/Diet/Wound Care/Special Instructions: 1. Weight-bear as tolerated on your operative extremity unless instructed otherwise. Use a walker or other assistive device to ambulate. 2. Leave surgical dressing in place. If your dressing becomes saturated with blood, there is drainage, or the dressing becomes loose please contact the office. 3. It is okay to shower with your surgical dressing, but do not submerge in water (no hot tubs, bath's, swimming etc.) 4. Make sure to take her blood clot prevention medication as prescribed (aspirin, Eliquis, Xarelto, and Plavix are commonly prescribed medications for blood clot prevention) 5. While taking [place] or Percocet for pain make sure you're taking a stool softener (Colace) and drink lots of water. 6. Keep all follow-up appointments as scheduled. You will usually be seen in 1-2 weeks following surgery. 7. Please contact the office with any questions or concerns [phone] Discharge Disposition: HOME WITH HOME HEALTH SERVICES
[2023-10-06] MEDS: ATORVASTATIN 40 MG TAB PO SCH (08:58)
[2023-10-06] MEDS: HYDROmorphone 0.5 MG/0.5 ML SYRINGE IVP PRN (11:52)
[2023-10-06 13:22] LABS: Basophils # (A) 0.01 X 10*3/uL (0.00-0.10); Basophils % (A) 0.1 %; Eosinophils # (A) 0 X 10*3/uL (0.04-0.35); Eosinophils % (A) 0 %; HCT 30.3 % (37.2-46.3); HGB 9.8 g/dL (12.0-15.0); Lymphocytes # (A) 0.84 X 10*3/uL (0.90-5.00); Lymphocytes % (A) 6.5 %; MCH 26.2 pg (27.0-32.0); MCHC 32.3 g/dL (32.0-37.0); Mean Platelet Volume 10.3 FL (9.5-12.2); Monocytes # (A) 1.32 X 10*3/uL (0.20-1.00); Monocytes % (A) 10.3 %; NRBC Per 100 WBC 0 X 10*3/uL (0.00-0.01); Neutrophils # (A) 10.64 X 10*3/uL (1.80-7.70); Neutrophils % (A) 82.7 %; Platelet Count 180 X 10*3/uL (140-440); RBC 3.74 X 10*6/uL (4.10-5.20); RDW 14.1 % (11.5-14.5); WBC 12.86 X 10*3/uL (4.50-10.00)
--- NOTE | 2023-10-07 09:23 | P.PN ---
Subjective The patient's discharge was canceled yesterday due to pain in her right hip. This morning the patient continues to complain of pain in her hip. She says it hurts to walk. She has no other complaints. Objective - Vital Signs Vital signs: Vital Signs Temp 98.2 F 10/07/23 06:24 Pulse 83 10/07/23 00:19 Resp 16 10/07/23 00:19 BP 104/64 10/07/23 00:19 Pulse Ox 93 L 10/07/23 00:19 FiO2 Intake & Output 10/06/23 10/07/23 10/07/23 18:59 06:59 18:59 Other: Voiding Method Toilet # Voids 2 3 - Exam The patient is resting comfortably in bed. She is alert and able to answer questions. She appears comfortable and in no obvious distress. A focused exam of the right lower extremity was conducted. Her dressing is intact. There is mild swelling and ecchymosis in her thigh. Her thigh is soft and compressible. Femoral nerve function is intact. The patient is able to actively plantar flex and dorsiflex her ankle and her toes. - Labs CBC & Chem 7: 10/06/23 06:54 10/06/23 06:54 Labs: Abnormal Lab Results - Last 24 Hours (Table) 10/06/23 Range/Units 06:54 WBC 12.86 H (4.50-10.00) X 10*3/uL RBC 3.74 L (4.10-5.20) X 10*6/uL Hgb 9.8 L (12.0-15.0) g/dL Hct 30.3 L (37.2-46.3) % MCH 26.2 L (27.0-32.0) pg Immature Gran # 0.05 H (0.00-0.04) X 10*3/uL Neutrophils # 10.64 H (1.80-7.70) X 10*3/uL Lymphocytes # 0.84 L (0.90-5.00) X 10*3/uL Monocytes # 1.32 H (0.20-1.00) X 10*3/uL Eosinophils # 0 L (0.04-0.35) X 10*3/uL Assessment and Plan Assessment: Postoperative day #2 status post right direct anterior total hip arthroplasty Plan: Continue treatment as outlined yesterday. The patient can weight-bear as tolerated on her right leg. DVT prophylaxis with aspirin 81 mg twice a day. I would like her to mobilize out of bed and into a chair. We'll plan on keeping her an additional night for pain control. We will see how she is doing tomorrow and she can possibly discharge home then.
[2023-10-07 12:35] LABS: Basophils % (A) 0 %; Eosinophils % (A) 0 %; HCT 31.5 % (34.0-46.0); HGB 10.4 gm/dL (11.4-16.0); Hypochromasia Slight; Lymphocytes # (A) 1.2 k/uL (1.0-4.8); Lymphocytes % (A) 14 %; MCH 27.6 pg (25.0-35.0); MCHC 32.9 g/dL (31.0-37.0); MCV 84.1 fL (80.0-100.0); Mean Platelet Volume 7.7; Monocytes # (A) 0.7 k/uL (0-1.0); Monocytes % (A) 8 %; Neutrophils # (A) 6.4 k/uL (1.3-7.7); Neutrophils % (A) 76 %; Platelet Count 161 k/uL (150-450); RBC 3.75 m/uL (3.80-5.40); RDW 14.1 % (11.5-15.5); WBC 8.5 k/uL (3.8-10.6)
[2023-10-07 12:51] LABS: African American GFR (CKD) >90 (>60 ml/min/1.73 sqM); Anion Gap 5 mmol/L; Blood Urea Nitrogen 15 mg/dL (7-17); Calcium 8.2 mg/dL (8.4-10.2); Carbon Dioxide 24 mmol/L (22-30); Chloride 107 mmol/L (98-107); Glucose 132 mg/dL (74-99); Non-African American GFR(CKD) >90 (>60 ml/min/1.73 sqM); Potassium 3.8 mmol/L (3.5-5.1); Sodium 136 mmol/L (137-145)
--- NOTE | 2023-10-07 17:49 | P.PN ---
Subjective Progress Note Date: 10/06/23 68-year-old female patient with history of hypertension, hyperlipidemia, gastroesophageal reflux disease, admitted to the hospital with severe right hip osteoarthritis that has failed conventional therapy. Patient is admitted for elective right total hip arthroplasty; patient is POD # 1 --Reports adequate pain control; apprehensive of getting out of bed to go to the bathroom Patient is currently taking rosuvastatin 20 mg daily; currently not on any antihypertensive therapy Objective - Vital Signs Vital signs: Vital Signs Temp 99.2 F 10/06/23 13:44 Pulse 67 10/06/23 13:44 Resp 18 10/06/23 13:44 BP 93/58 10/06/23 13:44 Pulse Ox 95 10/06/23 13:44 FiO2 Intake & Output 10/05/23 10/06/23 10/06/23 18:59 06:59 18:59 Intake Total 1150 Output Total 200 Balance 950 Weight 82.2 kg Intake: IV 1150 Output: Estimated Blood Loss 200 Other: Voiding Method Toilet Toilet # Voids 1 0 - Exam - Constitutional General appearance: Present: average body habitus, cooperative, no acute distress - EENT Eyes: Present: anicteric sclerae, EOMI, PERRLA, normal appearance ENT: Present: hearing grossly normal, normal oropharynx Ears: bilateral: normal - Neck Neck: Present: normal ROM. Absent: lymphadenopathy, rigidity, thyromegaly Carotids: negative: bruit present Thyroid: bilateral: normal size, negative: enlarged, nodule - Respiratory Respiratory: bilateral: CTA, negative: rales, rhonchi, wheezing - Cardiovascular Rhythm: regular Heart sounds: normal: S1, S2 Abnormal Heart Sounds: Absent: systolic murmur, diastolic murmur - Gastrointestinal General gastrointestinal: Present: normal bowel sounds, soft. Absent: dist ended, organomegaly, tenderness - Genitourinary Genitourinary Comment(s): deferred - Integumentary Integumentary: Present: normal turgor. Absent: jaundiced, rash, ulcer - Neurologic Neurologic: Present: CNII-XII intact. Absent: focal deficits - Musculoskeletal Musculoskeletal: Present: gait normal, strength equal bilaterally - Psychiatric Psychiatric: Present: A&O x's 3, appropriate affect, intact judgment & insight - Labs CBC & Chem 7: 10/07/23 12:14 10/07/23 12:14 Labs: Abnormal Lab Results - Last 24 Hours (Table) 10/06/23 10/06/23 Range/Units 06:54 06:54 WBC 12.86 H (4.50-10.00) X 10*3/uL RBC 3.74 L (4.10-5.20) X 10*6/uL Hgb 9.8 L (12.0-15.0) g/dL Hct 30.3 L (37.2-46.3) % MCH 26.2 L (27.0-32.0) pg Immature Gran # 0.05 H (0.00-0.04) X 10*3/uL Neutrophils # 10.64 H (1.80-7.70) X 10*3/uL Lymphocytes # 0.84 L (0.90-5.00) X 10*3/uL Monocytes # 1.32 H (0.20-1.00) X 10*3/uL Eosinophils # 0 L (0.04-0.35) X 10*3/uL Sodium 135 L (137-145) mmol/L Chloride 108 H (98-107) mmol/L BUN 25 H (7-17) mg/dL Glucose 130 H (74-99) mg/dL Assessment and Plan Assessment: 1. Severe osteoarthritis right hip -Status post right total hip arthroplasty; POD #0 -- PT/OT to evaluate patient; recommending incentive spirometry every 1-2 hours while awake -- DVT prophylaxis per recommendation of orthopedic surgery -Patient remains on cefazolin 2 g IV every 8 hours -Pain control with IV Dilaudid and [place] 2. Hyperlipidemia; patient takes Crestor 20 mg daily 3. Gastroesophageal reflux disease; start Protonix 40 mg daily DVT prophylaxis; per discretion of orthopedic surgery Code status; full code
--- NOTE | 2023-10-07 17:50 | P.PN ---
Subjective Progress Note Date: 10/07/23 68-year-old female patient with history of hypertension, hyperlipidemia, gastroesophageal reflux disease, admitted to the hospital with severe right hip osteoarthritis that has failed conventional therapy. Patient is admitted for elective right total hip arthroplasty; patient is POD # 1 --Reports adequate pain control; apprehensive of getting out of bed to go to the bathroom Patient is currently taking rosuvastatin 20 mg daily; currently not on any antihypertensive therapy 10/07/2023 Patient is seen and evaluated in room at bedside; been ambulating to the bathroom; continues to report uncontrolled pain Vital signs are reviewed and stable with temperature of 98.2, pulse 83, respirations 16 and blood pressure of 104/64 -- Hemoglobin remained stable -Patient's discharge is held due to uncontrolled pain Objective - Vital Signs Vital signs: Vital Signs Temp 98.1 F 10/07/23 07:19 Pulse 75 10/07/23 07:19 Resp 17 10/07/23 07:19 BP 102/65 10/07/23 07:19 Pulse Ox 93 L 10/07/23 07:19 FiO2 Intake & Output 10/06/23 10/07/23 10/07/23 18:59 06:59 18:59 Other: Voiding Method Toilet # Voids 2 3 - Exam - Constitutional General appearance: Present: average body habitus, cooperative, no acute distress - EENT Eyes: Present: anicteric sclerae, EOMI, PERRLA, normal appearance ENT: Present: hearing grossly normal, normal oropharynx Ears: bilateral: normal - Neck Neck: Present: normal ROM. Absent: lymphadenopathy, rigidity, thyromegaly Carotids: negative: bruit present Thyroid: bilateral: normal size, negative: enlarged, nodule - Respiratory Respiratory: bilateral: CTA, negative: rales, rhonchi, wheezing - Cardiovascular Rhythm: regular Heart sounds: normal: S1, S2 Abnormal Heart Sounds: Absent: systolic murmur, diastolic murmur - Gastrointestinal General gastrointestinal: Present: normal bowel sounds, soft. Absent: distended, organomegaly, tenderness - Genitourinary Genitourinary Comment(s): deferred - Integumentary Integumentary: Present: normal turgor. Absent: jaundiced, rash, ulcer - Neurologic Neurologic: Present: CNII-XII intact. Absent: focal deficits - Musculoskeletal Musculoskeletal: Present: gait normal, strength equal bilaterally - Psychiatric Psychiatric: Present: A&O x's 3, appropriate affect, intact judgment & insight - Labs CBC & Chem 7: 10/07/23 12:14 10/07/23 12:14 Labs: Abnormal Lab Results - Last 24 Hours (Table) 10/06/23 Range/Units 06:54 WBC 12.86 H (4.50-10.00) X 10*3/uL RBC 3.74 L (4.10-5.20) X 10*6/uL Hgb 9.8 L (12.0-15.0) g/dL Hct 30.3 L (37.2-46.3) % MCH 26.2 L (27.0-32.0) pg Immature Gran # 0.05 H (0.00-0.04) X 10*3/uL Neutrophils # 10.64 H (1.80-7.70) X 10*3/uL Lymphocytes # 0.84 L (0.90-5.00) X 10*3/uL Monocytes # 1.32 H (0.20-1.00) X 10*3/uL Eosinophils # 0 L (0.04-0.35) X 10*3/uL Assessment and Plan Assessment: 1. Severe osteoarthritis right hip -Status post right total hip arthroplasty; POD #0 -- PT/OT to evaluate patient; recommending incentive spirometry every 1-2 hours while awake -- DVT prophylaxis per recommendation of orthopedic surgery -Patient remains on cefazolin 2 g IV every 8 hours -Pain control with IV Dilaudid and [place] 2. Hyperlipidemia; patient takes Crestor 20 mg daily 3. Gastroesophageal reflux disease; start Protonix 40 mg daily DVT prophylaxis; per discretion of orthopedic surgery Code status; full code
[2023-10-08 08:13] VITALS: BP 96/61; PULSE 65; RESP 17; TEMP 98.7
[2023-10-08] MEDS: MAGNESIUM HYDROXIDE 2,400 MG/30 ML CUP PO PRN (08:28)
[2023-10-08] MEDS ORDERED: RIVAROXABAN 10 MG TAB PO SCH (09:15)
--- NOTE | 2023-10-08 09:23 | P.PN ---
Subjective Patient is doing better this morning. Her pain is improved. Objective - Vital Signs Vital signs: Vital Signs Temp 98.7 F 10/08/23 07:10 Pulse 65 10/08/23 07:10 Resp 17 10/08/23 07:10 BP 96/61 10/08/23 07:10 Pulse Ox 93 L 10/08/23 07:10 FiO2 Intake & Output 10/07/23 10/08/23 10/08/23 18:59 06:59 18:59 Intake Total 800 Balance 800 Intake: Oral 800 Other: # Voids 6 4 # Bowel Movements 0 - Exam Resting comfortably in bed. She is alert and able to answer questions. The d ressing over her hip is intact. Femoral nerve function is intact. She is able to actively plantarflex and dorsiflex her ankle and her toes. - Labs CBC & Chem 7: 10/07/23 12:14 10/07/23 12:14 Labs: Abnormal Lab Results - Last 24 Hours (Table) 10/07/23 10/07/23 Range/Units 12:14 12:14 RBC 3.75 L (3.80-5.40) m/uL Hgb 10.4 L (11.4-16.0) gm/dL Hct 31.5 L (34.0-46.0) % Sodium 136 L (137-145) mmol/L Glucose 132 H (74-99) mg/dL Calcium 8.2 L (8.4-10.2) mg/dL Assessment and Plan Assessment: Post operative day #3 status post right direct anterior total hip arthroplasty Plan: Patient is doing much better this morning. We will plan on getting her up and having her ambulate in the hallway with nursing. If she continues to do well she will discharge home later this afternoon.
[2023-10-08 12:52] LABS: Basophils # (A) 0.03 X 10*3/uL (0.00-0.10); Basophils % (A) 0.4 %; Eosinophils # (A) 0.07 X 10*3/uL (0.04-0.35); Eosinophils % (A) 0.9 %; HCT 28.1 % (37.2-46.3); HGB 8.9 g/dL (12.0-15.0); Lymphocytes # (A) 1.74 X 10*3/uL (0.90-5.00); Lymphocytes % (A) 22.1 %; MCH 26.4 pg (27.0-32.0); MCHC 31.7 g/dL (32.0-37.0); MCV 83.4 FL (80.0-97.0); Mean Platelet Volume 10.7 FL (9.5-12.2); Monocytes # (A) 0.82 X 10*3/uL (0.20-1.00); Monocytes % (A) 10.4 %; NRBC Per 100 WBC 0 X 10*3/uL (0.00-0.01); Neutrophils # (A) 5.18 X 10*3/uL (1.80-7.70); Neutrophils % (A) 65.9 %; Platelet Count 153 X 10*3/uL (140-440); RBC 3.37 X 10*6/uL (4.10-5.20); RDW 14.3 % (11.5-14.5); WBC 7.86 X 10*3/uL (4.50-10.00)
[2023-10-08] MEDS ORDERED: ASPIRIN 81 MG PO SCH (21:00)
== END 2023-10-08 13:05 | disposition home health service (06) ==
LOC: OR 05:37 → 4SSUR 09:30 → OR 10-08 13:05
PROVIDERS: ATTEND Orthopaedic Surgery
DX: M16.11 Unilateral primary osteoarthritis, right hip (principal); E78.5 Hyperlipidemia, unspecified; G89.18 Other acute postprocedural pain; I10 Essential (primary) hypertension; K21.9 Gastro-esophageal reflux disease without esophagitis; Z79.82 Long term (current) use of aspirin; Z79.899 Other long term (current) drug therapy; Z87.891 Personal history of nicotine dependence
CPT/HCPCS: 64447; 73501; 80048; 85025